=== PATIENT | male | born 2000 | race Caucasian/White ===

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

== ENCOUNTER 2020-07-04 10:19 | Emergency (ER) | payer OTHER, SELFPAY ==
[2020-07-04 11:34] VITALS: BP 126/74; PULSE 81; RESP 20; TEMP 36.4; O2SAT 98; BMI 27.6
--- NOTE | 2020-07-04 11:57 | HMH.EDUTC ---
[facility] [place] Clinical Impression: Right otitis media Qualifiers: Otitis media type: suppurative Chronicity: acute Recurrence: non-recurrent Spontaneous tympanic membrane rupture: without spontaneous rupture Qualified Code(s): H66.001 - Acute suppurative otitis media without spontaneous rupture of ear drum, right ear Disposition: Home, Self-Care Condition on Discharge: Good Instructions: Middle Ear Infection Additional Instructions: Drink plenty of fluids. Take tylenol or ibuprofen for pain or fever. Take the medications as directed. Follow up with your regular doctor. GO TO THE ER FOR ANY WORSENING SYMPTOMS Prescriptions: Brompheniramine/Pseudoephed/Dm [Bromfed Dm Cough Syrup] 5 ml PO Q6HP PRN #240 syrup PRN Reason: Cough Transmission Status: Received by [facility] Doxycycline Hyclate [Doxycycline 100mg Capsule] 100 mg PO Q12 10 Days #20 cap Transmission Status: Received by [facility] Referrals: Tex Parnell [Primary Care Provider] - Time of Disposition: 12:00 Medical Decision Making - Medical Records Medical records reviewed: No: I reviewed the patient's medical records. - Pedro Inquiry Pt receiving controlled substance: No Vital Signs: 07/04/20 11:34 07/04/20 12:04 Temperature 97.6 F 97.6 F Temperature Source Oral Pulse Rate 81 Pulse Rate [Left Radial] 81 Respiratory Rate 20 20 Blood Pressure 126/74 Blood Pressure [Left Arm] 126/74 Blood Pressure Mean [Left Arm] 91 Blood Pressure Source [Left Arm] Automatic Cuff Blood Pressure Position [Left Arm] Supine 02 Sat by Pulse Oximetry 98 Oxygen Delivery Method Room Air [facility] [place] - General Stated complaint: ear pain Time Seen by Provider: 07/04/20 11:57 Mode of Arrival: Ambulatory Limitations: No Limitations Description of Symptoms (Recalled from Triage Doc. by RN): right ear pain that has started 2 weeks ago. draining clear fluid. HEENT Symptoms (Recalled from RN notes): Yes Resp Symptoms (Recalled from RN notes): No Skin Symptoms (Recalled from RN notes): No MS Symptoms (Recalled from RN notes): No Functional Status (Recalled from RN notes): adequate - History of Present Illness Provider Complaint: He c/o right ear pain for the past 2 days. He has a history of getting ear infections at times. He denies any fever or chills. - Related Data Previous Rx's Medication Instructions Recorded azithromycin 250 mg tablet 250 mg PO QDAY 5 Days #6 tab 03/12/20 gdywkgvmoidwbvy-fogrzrhpactjlih-FW 10 ml PO Q4-6H PRN 7 Days #118 ml 03/12/20 2 mg-30 mg-10 mg/5 mL oral syrup Brompheniramine/Pseudoephed/Dm 5 ml PO Q6HP PRN #240 syrup 07/04/20 [Bromfed Dm Cough Syrup] Doxycycline Hyclate [Doxycycline 100 mg PO Q12 10 Days #20 cap 07/04/20 100mg Capsule] Allergies Allergy/AdvReac Type Severity Reaction Status Date / Time Cephalosporins Allergy Unknown Verified 03/12/20 18:27 [CEPHALOSPORINS] Penicillins [PENICILLINS] Allergy Unknown Verified 03/12/20 18:27 - Worker's Comp Is this a Worker's Comp case?: No [facility] History - Hepatitis A Screen Drug use history?: No High risk sexual behaviors?: No History of sexually transmitted infection?: No Currently employed?: No Childcare worker?: No Do you have indoor plumbing?: Yes Do you have electricity?: Yes Attestation statement:: This patient has been screened for Hepatitis A risk factors. I have reviewed the patient's past medical history: Yes Medical History: Reports:: Asthma Denies:: Cancer, Diabetes Mellitus Type 1, Diabetes Mellitus Type 2, MRSA Comment: knee pain,rt Laterality Cases: Bilateral: Arthroscopy Knee, Tonsillectomy Amputation: No Fractures: No Comment: distal radius fx,left - Social History Smoking Status: Never smoker Alcohol Intake: never Substance Use Type: denies use Occupational Status: employed Housing: house Household Members: family Family Hx:: Hypertension, Cancer ROS Obtained: Yes All systems r
[2020-07-04 12:04] VITALS: BP 126/74; PULSE 81; RESP 20; TEMP 36.4; O2SAT 98
== END 2020-07-04 12:07 | disposition home or self-care (01) ==
PROVIDERS: Emergency Provider Nurse Practitioner Family; PCP Internal Medicine
DX: H66.001 Acute suppurative otitis media without spontaneous rupture of ear drum, right ear (principal)
CPT/HCPCS: 99202; G0463

== ENCOUNTER → 2020-07-11 14:11 | Outpatient (CLI) | payer OTHER, SELFPAY | PROVIDERS: PCP Internal Medicine; Visit Provider Emergency Medicine | DX: Z11.52 Encounter for screening for COVID-19 (principal) | CPT/HCPCS: U0003 ==

== ENCOUNTER 2020-10-07 13:38 | Emergency (ER) | payer OTHER, SELFPAY ==
[2020-10-07 13:40] VITALS: BP 131/73; PULSE 81; RESP 20; TEMP 36.8; O2SAT 99; BMI 27.3
--- NOTE | 2020-10-07 14:08 | HMH.EDUTC ---
[facility] [place] Disposition Clinical Impression: Encounter for laboratory testing for COVID-19 virus Allergic rhinitis Qualifiers: Allergic rhinitis trigger: unspecified Allergic rhinitis seasonality: unspecified Qualified Code(s): J30.9 - Allergic rhinitis, unspecified Disposition: Home, Self-Care Condition on Discharge: Good Instructions: Allergic Rhinitis, DI for Allergic Rhinitis, DI for COVID-19 (Suspected or Confirmed ), Coronavirus Disease 2019, Preventing the Spread of Coronavirus Discharge Instructions Additional Instructions: *Monitor Temp, Over the counter Motrin or Tylenol as directed/as needed Tylenol every 4 hours and Motrin every 6 hours (as long as your family doctor has told you that you can take it) for fever or pain. and straight to ER if unable to lower temp less than 101.0 after medication given *Warm salt water gargles may help to soothe the throat *Throat Lozenges *Warm fluids like tea with honey may help to soothe the throat *Sleep elevated *Humidifier/Vaporizer Follow up IMMEDIATELY for new or worsening symptoms or no Noticeable improvement over the next 48-72 hours. 911 for difficulty breathing or swallowing You were tested for today for COVID19 your test result should be back in the next 24-48 hours, you may call to the [facility] to see if your test results are back in the next 48 hours [phone] [facility] hours are 9am-9pm You was given a handout with instructions for Self Quarantine and Self isolation for while you wait on test results and what to do if they are positive If you are positive the Health Dept will be contacting you also Prescriptions: Fluticasone Propionate [Flonase 50mcg nasal spray 16gm] 1 spr NS DAILY #1 bottle Transmission Status: [email or web address] Referrals: Tex Parnell [Primary Care Provider] - As needed Forms: Work/School Release Time of Disposition: 14:15 Medical Decision Making - Pedro Inquiry Pt receiving controlled substance: No Pedro was queried for this patient: No Vital Signs: 10/07/20 13:40 10/07/20 14:17 Temperature 98.3 F 98.3 F Temperature Source Oral Pulse Rate 81 Pulse Rate [Right Brachial] 81 Respiratory Rate 20 20 Blood Pressure 131/73 Blood Pressure [Right Arm] 131/73 Blood Pressure Mean [Right Arm] 92 Blood Pressure Source [Right Arm] Automatic Cuff Blood Pressure Position [Right Arm] Sitting 02 Sat by Pulse Oximetry 99 Oxygen Delivery Method Room Air Orders (Tests/Meds): ED MEDICATIONS Discontinued Medications Generic Name Dose Route Start Last Admin Trade Name Crow PRN Reason Stop Dose Admin Methylprednisolone Sodium Succinate 125 mg 10/07/20 14:12 10/07/20 14:13 Methylprednisolone Sod Succ 125mg Vial IM 10/07/20 14:13 125 mg ONCE ONE Administration ORDERS Category Date Time Status Covid-19 Nasal PCR ([facility]) Routine Lab 10/07/20 13:55 Received [facility] [place] HPI - General Stated complaint: covid test Time Seen by Provider: 10/07/20 14:08 Mode of Arrival: Ambulatory Source of Information: Patient Limitations: No Limitations Description of Symptoms (Recalled from Triage Doc. by RN): PATIENT C/O BODY ACHES AND SINUS PRESSURE X 2 DAYS. REQUESTING COVID TEST HEENT Symptoms (Recalled from RN notes): Yes Resp Symptoms (Recalled from RN notes): No Skin Symptoms (Recalled from RN notes): No MS Symptoms (Recalled from RN notes): No Functional Status (Recalled from RN notes): WNL - History of Present Illness Provider Complaint: Patient state that he has been having sinus pressure and clear drainage from his nose and body aches State that he has bad allergies and has been outside alot and not sure if his allergies is acting up or if he may have been around someone with COVID State that he had to call into work today and wanted to get a COVID test to make sure he didnt have it before returning to work - Related Data Previous Rx's Medication Instructions Recorded Fluticasone Propionate [Flonase 1 spr NS D
[2020-10-07 14:17] VITALS: BP 131/73; PULSE 81; RESP 20; TEMP 36.8; O2SAT 99
== END 2020-10-07 14:20 | disposition home or self-care (01) ==
PROVIDERS: Emergency Provider Nurse Practitioner; PCP Internal Medicine
DX: Z20.822 Contact with and (suspected) exposure to COVID-19 (principal); J30.9 Allergic rhinitis, unspecified; J45.909 Unspecified asthma, uncomplicated; Z88.0 Allergy status to penicillin
CPT/HCPCS: 96372; 99202; G0463; U0003

== ENCOUNTER → 2021-03-24 11:37 | Outpatient (CLI) | payer OTHER, SELFPAY | PROVIDERS: PCP Internal Medicine; Visit Provider Internal Medicine | DX: Z20.822 Contact with and (suspected) exposure to COVID-19 (principal) | CPT/HCPCS: C9803; U0003; U0005 ==

== ENCOUNTER → 2021-09-06 15:16 | Outpatient (CLI) | payer OTHER, SELFPAY ==
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
== END ==
PROVIDERS: PCP Internal Medicine; Visit Provider Internal Medicine
DX: J34.89 Other specified disorders of nose and nasal sinuses (principal); M54.2 Cervicalgia; V89.2XXA Person injured in unspecified motor-vehicle accident, traffic, initial encounter
CPT/HCPCS: 70150; 72050

== ENCOUNTER 2023-01-06 22:27 | Emergency (ER) | payer BC, SELFPAY ==
[2023-01-06 22:28] VITALS: BP 116/70; PULSE 78; RESP 16; TEMP 36.8; O2SAT 98; BMI 23.7
--- NOTE | 2023-01-06 22:50 | HMH.EDWNDL ---
Discharge Plan Disposition Patient Disposition: Home, Self-Care Chief Complaint: Wound/Laceration Prescriptions Prescriptions: No Action fluticasone propionate 120 SPR/BOT bottle 1 spr NS DAILY Qty: 1 0RF Rx Instructions: each nostril daily Referrals Follow up/Referrals: Tex Parnell MD [Primary Care Provider] - See instructions Clinical Impressions Clinical Impression: Laceration Instructions Patient Instructions: DI for Laceration Repair Discharge ED Provider: Sulaiman (ED)Dharmesh Wound/Laceration HPI General Chief Complaint: Wound/Laceration Stated Complaint: AO cut finger left hand 01/06/232129 Time Seen by Provider: 01/06/23 22:50 Mode of Arrival: Ambulatory Source of Information: Patient and Medical Record Limitations: No Limitations Description of Symptoms (Recalled from ER Triage Doc. by RN): Pt was working on vehicle and caught left hand between control arm and fender. Lac to top of left hand. History of Present Illness HPI narrative: lt hand lac tonight Onset (ago): hour(s) Extremity Location: Left: hand Place: home Context: accidental Associated symptoms: none Related Data Previous Rx's Medication Instructions Recorded fluticasone propionate 50 1 spr NS DAILY ##1 10/07/20 mcg/actuation nasal spray,suspension Allergies Allergy/AdvReac Type Severity Reaction Status Date / Time Cephalosporins Allergy Unknown Verified 03/12/20 18:27 [CEPHALOSPORINS] Penicillins [PENICILLINS] Allergy Unknown Verified 03/12/20 18:27 [facility] Disclaimer: The information contained in this section may have been updated after the patient was seen, as this information can be updated by other users. Social History Smoking Status: Never smoker alcohol intake: never substance use type: denies use current occupational status: other Travel in the last 8 weeks: None household members: family housing: house ROS Obtained: Yes All systems reviewed & no additional complaints except as documented Physical Exam General General appearance: alert Head Head exam: normocephalic Eye Eye exam: Present PERRL and EOMI ENT ENT exam: Present mucous membranes moist Neck Neck exam: Present trachea midline Respiratory Respiratory exam: Absent respiratory distress Cardiovascular Cardiovascular exam: Present regular rate Extremities Exam Extremities exam: Present full ROM Neurological Exam Neurological exam: Present alert, oriented X3 and CN II-XII intact; Absent motor sensory deficit Psychiatric Psychiatric exam: Present normal affect Skin Skin exam: Present other (1 cm lt hand lac ); Absent rash Medical Decision Making Medical Records Medical records reviewed: Yes I reviewed the patient's medical records. Pedro Inquiry Pt receiving controlled substance: No Vital Signs: 01/06/23 22:28 Temperature 98.3 F Temperature Source Oral Pulse Rate [Right] 78 Respiratory Rate 16 Blood Pressure [Right Arm] 116/70 Blood Pressure Mean [Right Arm] 85 Blood Pressure Source [Right Arm] Automatic Cuff Blood Pressure Position [Right Arm] Sitting 02 Sat by Pulse Oximetry 98 Lab Data Lab results reviewed: Yes I reviewed the patient's lab results. Orders (Tests/Meds): ED MEDICATIONS Discontinued Medications Generic Name Dose Route Start Last Admin Trade Name Freq PRN Reason Stop Dose Admin Lidocaine HCl 10 ml 01/06/23 22:41 01/06/23 22:43 Lidocaine 1% 10ml Mdv IJ 01/06/23 22:42 10 ml ONCE ONE Administration Medical Decision Narrative: lt hand lac with sutures and sutures out 10 days Procedures Laceration Laceration 1: Site: hand Side (If applicable): left Size (cm): 1 Description: linear Depth: involves subcutaneous layer Local Anesthetic: lidocaine 1% Amount of anesthesia used (mL): 3 Pre-repair: deep structures intact Skin layer closed with: nylon Size (cm): 4-0
[2023-01-06 22:55] VITALS: BP 118/74; PULSE 78; RESP 16; TEMP 36.8
== END 2023-01-06 22:57 | disposition home or self-care (01) ==
PROVIDERS: Emergency Provider Emergency Medicine; PCP Internal Medicine
DX: S61.412A Laceration without foreign body of left hand, initial encounter (principal); W23.1XXA Caught, crushed, jammed, or pinched between stationary objects, initial encounter
CPT/HCPCS: 12041; 99283

== ENCOUNTER 2024-02-29 08:51 | Emergency (ER) | payer BC, SELFPAY ==
[2024-02-29 09:04] VITALS: BP 117/68; PULSE 85; RESP 16; TEMP 36.6; O2SAT 100; BMI 25.0
--- NOTE | 2024-02-29 09:13 | EXP.UTC ---
Discharge Plan Disposition Patient Disposition: Home, Self-Care Condition: Good Prescriptions Prescriptions: New diphenhydramine HCl 25 mg capsule 25 mg PO Q6HP PRN (Reason: Itching) Qty: 30 0RF methylprednisolone 4 mg Tablets,Dose Pack 4 mg PO DIRECTED 6 Days Qty: 21 0RF Rx Instructions: Take 1 pack as directed for 6 days No Action propranolol 20 mg tablet 20 mg PO TID Qty: 90 0RF amitriptyline 25 mg tablet 25 mg PO HS Qty: 30 2RF atomoxetine 80 mg capsule 80 mg PO DAILY Qty: 30 2RF escitalopram oxalate 20 mg tablet 20 mg PO DAILY Qty: 30 2RF meloxicam 15 mg tablet 15 mg PO DAILY Qty: 30 2RF buspirone 15 mg tablet See Rx Instructions .ROUTE .COMPLEX Qty: 90 0RF Dose Instruction: TAKE ONE TABLET BY MOUTH THREE TIMES DAILY Rx Instructions: TAKE ONE TABLET BY MOUTH THREE TIMES DAILY fluticasone propionate 120 SPR/BOT bottle 1 spr NS DAILY Qty: 1 0RF Rx Instructions: each nostril daily Referrals Follow up/Referrals: Tex Parnell MD [Primary Care Provider] - See instructions Activity Restrictions/Add. Instructions Additional Instructions/Restrictions: Don't start the oral steroids until tomorrow. The diphenhydramine (benedryl) will make you drowsy, so don't drive or operate heavy machinery after taking it. Follow up with your regular doctor. GO TO THE ER FOR ANY WORSENING SYMPTOMS OR CONCERNS Clinical Impressions Clinical Impression: Bee sting Stand Alone Forms Stand Alone Forms: Work/School Release Instructions Patient Instructions: Insect Bites and Stings, DI for Insect Bites and Stings, Diphenhydramine, Dexamethasone, Methylprednisolone Print Language Print Language: Kiswahili Discharge ED Provider: Eduard Gamez [facility] [place] General Stated complaint: bee sting R eye, redness, swelling and pain Mode of Arrival: Ambulatory Source of Information: Patient Limitations: No Limitations Time Seen by Provider: 02/29/24 09:12 Description of Symptoms (Recalled from Triage Doc. by RN): insect sting r eye HEENT Symptoms (Recalled from RN notes): Yes Resp Symptoms (Recalled from RN notes): No Skin Symptoms (Recalled from RN notes): No MS Symptoms (Recalled from RN notes): No Functional Status (Recalled from RN notes): na History of Present Illness Provider Complaint: He states that he was stung by an unknown type of bee yesterday beside his right eye. He has had swelling around his right eye since then. He denies any vision changes other than from the swelling. He denies any other reaction. He does not have a history of bee sting allergy. Related Data Previous Rx's ?Medication ?Instructions ?Recorded fluticasone propionate 50 1 spr NS DAILY ##1 10/07/20 mcg/actuation nasal spray,suspension propranolol 20 mg tablet 20 mg PO TID #90 tabs 01/03/24 amitriptyline 25 mg tablet 25 mg PO HS #30 tabs 01/10/24 atomoxetine 80 mg capsule 80 mg PO DAILY #30 caps 01/10/24 escitalopram oxalate 20 mg tablet 20 mg PO DAILY #30 tabs 01/10/24 meloxicam 15 mg tablet 15 mg PO DAILY #30 tabs 01/10/24 buspirone 15 mg tablet See Rx Instructions .Route 02/14/24 .COMPLEX #90 tabs diphenhydramine HCl 25 mg capsule 25 mg PO Q6HP PRN Itching #30 caps 02/29/24 methylprednisolone 4 mg tablets in 4 mg PO DIRECTED 6 days #21 tabs 02/29/24 a dose pack Allergies Allergy/AdvReac Type Severity Reaction Status Date / Time Cephalosporins Allergy Unknown Verified 01/03/24 15:47 [CEPHALOSPORINS] Penicillins [PENICILLINS] Allergy Unknown Verified 01/03/24 15:47 Worker's Comp Is this a Worker's Comp case?: No Is this an [facility] Worker's Comp?: No Is this a [facility] Worker's Comp?: No [facility] Disclaimer: The information contained in this section may have been updated after the patient was seen, as this information can be updated by other users. Social History Smoking Status: Never smoker
[2024-02-29 10:06] VITALS: BP 117/65; PULSE 85; RESP 18; TEMP 36.6; O2SAT 100
== END 2024-02-29 10:07 | disposition home or self-care (01) ==
PROVIDERS: Emergency Provider Nurse Practitioner Family; PCP Internal Medicine
DX: T63.441A Toxic effect of venom of bees, accidental (unintentional), initial encounter (principal)
CPT/HCPCS: 96372; 99204; 99212; G0463; J1100

== ENCOUNTER 2024-03-21 16:17 | Outpatient (CLI) | payer BC, SELFPAY ==
[2024-03-21 16:55] LABS: Basophils % 0.6 % (0.1-2.0); Eosinophils # 0.2 K/mm3 (0.0-0.4); Eosinophils % 2.6 % (0.1-12.0); Hematocrit 42.8 % (42.0-52.0); Hemoglobin 14.7 g/dL (14.1-18.0); Lymphocytes # 1.9 K/mm3 (0.7-4.5); Lymphocytes % 25.8 % (10-50); Mean Corpuscular HGB Conc 34.5 g/dL (31.8-35.4); Mean Corpuscular Hemoglobin 30.4 pg (27.0-31.2); Mean Corpuscular Volume 88.1 fl (80-94); Mean Platelet Volume 8.2 fl (7.4-10.4); Monocytes # 0.3 K/mm3 (0.1-1.0); Monocytes % 4.6 % (1.7-9.3); Neutrophils # 4.8 K/mm3 (1.8-7.8); Neutrophils % 66.4 % (37.0-80.0); Platelet Count 256 K/mm3 (142-424); Red Blood Count 4.85 M/mm3 (4.60-6.20); Red Cell Distribution Width 14.1 % (11.5-17.5); White Blood Count 7.3 K/mm3 (4.8-10.8)
[2024-03-21 18:30] LABS: Alanine Aminotransferase 45 U/L (12-78); Albumin/Globulin Ratio 1.7 (1.1-1.8); Alkaline Phosphatase 62 U/L (38-126); Anion Gap 9.2 mEq/L (5-15); Aspartate Amino Transferase 46 U/L (17-59); Bilirubin,Total 0.6 mg/dl (0.2-1.3); Blood Urea Nitrogen 36 mg/dl (9-20); Calcium 9.5 mg/dl (8.4-10.2); Carbon Dioxide 30 mmol/L (22.0-30.0); Chloride 103 mmol/L (98-107); Estimated Glomerular Filt Rate 74 ml/min (>60); GFR (African American) 90 ML/MIN (>60); Globulin 2.3 g/dL (1.3-3.2); Glucose 71 mg/dl (74-100); Potassium 4.2 mmoL/L (3.5-5.1); Sodium 138 mmol/L (136-145); Total Protein,Serum 6.3 g/dl (6.3-8.2)
[2024-03-21 19:02] LABS: Thyroid Stimulating Hormone 1.14 uIU/mL (0.465-4.68)
[2024-03-23 09:32] LABS: Testosterone,Total 433 ng/dL (264-916)
== END 2024-03-21 23:59 | disposition home or self-care (01) ==
LOC: LAB.DROPOF 16:17
PROVIDERS: PCP Internal Medicine; Visit Provider Internal Medicine
DX: R53.1 Weakness (principal); R53.83 Other fatigue; Z51.81 Encounter for therapeutic drug level monitoring; Z79.1 Long term (current) use of non-steroidal anti-inflammatories (NSAID)
CPT/HCPCS: 80050; 80053; 84403; 84443; 85025